=== PATIENT | female | born 1990 | race Caucasian/White ===

== ENCOUNTER 2016-08-21 20:08 | Emergency (ER) | payer BC ==
[~2016-08-21] VITALS: Ht 162.6 cm; Wt 102.0 kg
[~2016-08-21 20:08] MED LIST: ALBU8.5H3 INH; AMOX1TAB67 PO; AZIT250T94 PO; CLIN-73 PO; HYDR-3498 PO; HYDR-902 PO; IBUP800T25 PO; LOPE1LIQ69 PO; NPH10OT BOTH EARS; ONDA4TAB35 PO; PARO40TA48 PO
[2016-08-21 20:10] VITALS: Ht 162.6 cm; Wt 102.0 kg
[2016-08-21] MEDS ORDERED: CEFTRIAXONE 1 GM INJ IM ONE (21:00)
[2016-08-21] MEDS ORDERED: DOXY100T20 PO (21:23)
--- NOTE | 2016-08-21 22:09 | ERD ---
ER Documentation Chief Complaint Date/Time DATE: 08/21/16 TIME: 22:05 Chief Complaint abscess left temporal area HPI This patient is a 26-year-old female with no significant medical history presenting to the emergency department for abscess to her left temporal area which began yesterday. The patient attempted to pop the "pimple". This made her symptoms worse. The patient denies fevers, discharge from the area, or other symptoms at this time. The patient has taken no medication for relief of symptoms. ROS All systems reviewed and are negative except as per history of present illness. Medications Home Meds Active Scripts Doxycycline Hyclate* (Doxycycline Hyclate*) 100 Mg Tablet.dr, 100 MG PO BID for 10 Days, #20 TAB Prov:PADMINI DERAS PA-C 08/21/16 Ibuprofen* (Motrin*) 800 Mg Tab, 800 MG PO Q6H Y for PAIN AND OR ELEVATED TEMP, #30 TAB Prov:CHINA MONTOYA DO 02/05/16 Albuterol Sulfate* (Proair HFA*) 8.5 Gm Hfa.aer.ad, 2 PUFF INH Q4, #1 INHALER Prov:CHINA MONTOYA DO 02/05/16 Azithromycin* (Zithromax*) 250 Mg Tablet, 250 MG PO .NilsonPACK DIRECTED, #6 TAB TAKE 500 MG (2 TABS) THE FIRST DAY THEN 250 MG (1 TAB) DAYS 2-5 Prov:CHINA MONTOYA DO 02/05/16 Hydrocodone/Acetaminophen (Beulah 10-325 Tablet) 1 Each Tablet, 1 TAB PO Q6H Y for PAIN, #20 TAB Prov:CHINA MONTOYA DO 02/05/16 Ondansetron Hcl* (Zofran* ODT) 4 mg -ODT Tab.disper, 4 MG PO Q6 Y for NAUSEA AND /OR VOMITING, #30 TAB Prov:LINDSEY ABDALLA PA-C 11/16/15 Hydrocodone Bit-Acetaminophen* (Beulah*) 5-325 Mg Tab, 1 TAB PO Q6 Y for PAIN, # 20 TAB Prov:PEPITO CARDENAS PA-C 03/22/15 Clindamycin Hcl* (Clindamycin Hcl*) 300 Mg Capsule, 300 MG PO TID for 7 Days, CAP Prov:CARDENASPEPITO LINDA 03/22/15 Neomycin/Polymyxin/Hydrocort* (Cortisporin* Otic) 10 Ml Susp, 4 DROP BOTH EARS QID for 7 Days, EA Prov:JACEK MENDOZA 01/03/15 Amoxicillin-Clavulanate K* (Augmentin*) 500 Mg Tab, 500 MG PO BID for 10 Days, TAB Prov:JACEK MENDOZA Chriss 01/03/15 Reported Medications Loperamide Hcl* (Imodium*) 0.2 Mg/Ml Liq, 1 MG PO Y for DIARRHEA, ML MAX 16 mg/day 10/23/14 Paroxetine Hcl* (Paxil*) 40 Mg Tablet, 40 MG PO DAILY, TAB 10/23/14 Allergies Allergies: Coded Allergies: No Known Allergy (Unverified , 10/23/14) PMhx/Soc History of Surgery: Yes (CYSTECTOMY FROM AXILLA) Anesthesia Reaction: No Hx Neurological Disorder: No Hx Respiratory Disorders: No Hx Cardiac Disorders: No Hx Psychiatric Problems: No Hx Miscellaneous Medical Probl: Yes (DEGENERATIVE DISC DISEASE, Bartholin cyst) Hx Alcohol Use: No Hx Substance Use: No Hx Tobacco Use: No Smoking Status: Never smoker FmHx Noncontributory for chief complaint Physical Exam Vitals Vital Signs Date Time Temp Pulse Resp B/P Pulse Ox O2 Delivery O2 Flow Rate FiO2 08/21/16 20:10 98.2 101 20 128/64 99 Physical Exam Const: The patient is resting comfortably in no acute distress. Head: Atraumatic Eyes: Normal Conjunctiva. EOMs are intact bilaterally without pain on movement. ENT: Normal External Ears, Nose and Mouth. Neck: Full range of motion..~ No meningismus. Resp: Clear to auscultation bilaterally Cardio: Regular rate and rhythm, no murmurs Abd: Soft, non tender, non distended. Normal bowel sounds Skin: There is a 1 cm x 1 cm indurated area over the left temporal region with associated erythema and induration. There is no significant warmth or disseminated cellulitis present. Back: No midline or flank tenderness Ext: No cyanosis, or edema Neur: Awake and alert Psych: Normal Mood and Affect Results 24 hrs Current Medications Medications (Trade) Dose Ordered Sig/Livier Route PRN Reason Start Time Stop Time Status Last Admin Dose Admin Ceftriaxone Sodium (Rocephin) 1 gm ONCE ONCE IM 08/21/16 21:00 08/21/16 21:01 DC 08/21/16 21:28 Procedures/MDM 26-year-old female presents to the emergency department secondary to complaints of abscess to the left temporal region which began yesterday. On physical examination the patient's vitals are within normal limits. Examination of the skin in this area reveals an indurated abscess that is 1 cm x 1 cm with associated erythema. I have low suspicion for deep tissue infection, periorbital cellulitis, septicemia, or other emergent conditions. The patient was given 1 g IM Rocephin in the department. I do not believe that incision and drainage is indicated at this time due to induration of the area. The patient is stable for outpatient management with a prescription for doxycycline. The patient agrees with the discharge plan and diagnosis. I consulted Dr. China Montoya, attending ED physician regarding this patient's case and he recommended close follow-up within 48 hours. He agreed with the ED course otherwise. The patient's questions and concerns were addressed. Strict ER return precautions were discussed. The patient is to follow-up with her primary care physician within the next 1-2 days. Departure Diagnosis: Primary Impression: Abscess Additional Impression: Cellulitis Condition: Fair Patient Instructions: Abscess, Antiobiotic Treatment Only, Cellulitis, Facial Additional Instructions: Please return in 48 hours for repeat evaluation. Follow up with your PCP within the next 1-3 days for a more thorough evaluation and a possible referral to a specialist. Return the the emergency department immediately if symptoms worsen or change. If you have any questions regarding medications, ask your pharmacist or us before you leave. If any adverse reactions, occur while taking your medications, discontinue the treatment and return to the emergency department immediately. If any new or worsening symptoms, uncontrolled fevers, or other unexplained symptoms occur, return to the emergency department immediately. Take your medications as directed, and complete the entire course of treatment. PADMINI DERAS PA-C Aug 21, 2016 22:08
== END 2016-08-21 21:45 | disposition home or self-care (01) ==
LOC: FTE 20:08
DX: L02.01 Cutaneous abscess of face (principal); L03.211 Cellulitis of face
CPT/HCPCS: 96372; 99284; J0696

== ENCOUNTER 2016-08-22 13:16 | Inpatient (IN) | payer BC ==
[~2016-08-22] VITALS: Ht 149.9 cm; Wt 101.0 kg
[~2016-08-22 13:16] MED LIST changes: +DOXY100T20 PO
[2016-08-22] MEDS ORDERED: DIPHENHYDRAMINE 50 MG INJ IV ONE (14:30)
[2016-08-22] MEDS ORDERED: CLINDAMYCIN 600 MG/D5W (PMX) 50 ML IVPB SCH (14:30)
[2016-08-22 14:57] LABS: ADD SCAN DIFF NO
[2016-08-22 15:16] LABS: BASOPHILS % 0.2 % (0.0-2.0); EOSINOPHILS # 0.1 10^3/ul (0.0-0.5); EOSINOPHILS % 1.1 % (0.0-7.0); HEMATOCRIT 36.1 % (37.0-47.0); HEMOGLOBIN 12.3 g/dl (12.0-16.0); LYMPHOCYTES # 1.9 10^3/ul (0.8-2.9); MEAN CORPUSCULAR HEMOGLOBIN 29.1 pg (29.0-33.0); MEAN CORPUSCULAR HGB CONC 34.1 g/dl (32.0-37.0); MEAN CORPUSCULAR VOLUME 85.3 fl (82.0-101.0); MONOCYTE # 0.8 10^3/ul (0.3-0.9); NEUTROPHIL # 8.8 10^3/ul (1.6-7.5); NEUTROPHILS % 75.4 % (39.0-77.0); PLATELET COUNT 318 10^3/UL (140-415); RED BLOOD COUNT 4.23 10^6/ul (4.20-5.40); RED CELL DISTRIBUTION WIDTH 13.2 % (11.5-14.5); WHITE BLOOD COUNT 11.6 10^3/ul (4.8-10.8)
[2016-08-22 15:27] LABS: ALBUMIN 4.2 g/dl (3.3-4.9); POTASSIUM 4.1 mmol/L (3.5-5.1)
[2016-08-22 15:29] LABS: CREATININE 0.65 mg/dl (0.44-1.00)
[2016-08-22 15:30] LABS: ALBUMIN/GLOBULIN RATIO 1.07; BILIRUBIN,INDIRECT 0.1 mg/dl (0-1.1); BILIRUBIN,TOTAL 0.1 mg/dl (0.2-1.3); CALCIUM 9.5 mg/dl (8.4-10.2); TOTAL PROTEIN 8.1 g/dl (6.1-8.1)
[2016-08-22] MEDS ORDERED: IOHEXOL 300MG/ML 150 ML BTL ONE (15:59)
[2016-08-22] MEDS ORDERED: SOD CHLORIDE 0.9% 100 ML ONE (15:59)
--- NOTE | 2016-08-22 16:23 | RADRPT ---
PROCEDURE: CT orbits with contrast CLINICAL INDICATION: Left-sided orbital cellulitis. TECHNIQUE: A CT of the orbits was performed utilizing axial sections following the uneventful intr avenous injection of 100 cc Omnipaque-300. Coronal and sagittal images were also reformatted. The e xam CTDIvol = 52.99 mGy and DLP = 616.05 mGy-cm. COMPARISON: CT sinuses 02/20/2015 FINDINGS: Globes: Normal in morphology and symmetric bilaterally with no intraocular density alteration or pr optosis. Intraconal structures: There is preservation of the retrobulbar fat without collection to suggest i ntraorbital abscess or phlegmon. The optic nerve and sheath complexes are normal in size and symmet jonathan. Extraocular muscles: Normal in size and symmetric bilaterally, the tendinous insertions are normal in thickness. Extraconal structures: The lacrimal glands are unremarkable. There is diffuse abnormal left-sided p reseptal, premaxillary and lateral periorbital inflammatory phlegmon consistent with the known histo ry of cellulitis but there is no extension of inflammatory change posterior to the left orbital sept um. No subcutaneous abscess is demonstrated. The right-sided structures are normal. Orbital apex: No abnormalities identified on either side. Optic chiasm: No abnormalities demonstrated. The area of the sella turcica and cavernous sinuses i s normal. Bony orbits: There is no evidence for fracture, erosion or periosteal reaction. Visualized paranasal sinuses: Moderate amount of maxillary sinus mucosal thickening is present john aterally. Other findings: Asymmetric enlargement of the left parotid gland is partially visualized with promi nent left-sided parotid and carotid space lymph nodes likely reactive lymphadenitis RPTAT:HJJR IMPRESSION: 1. Severe left-sided preseptal, lateral periorbital and premaxillary cellulitis with inflammatory p hlegmon but no evidence of abscess or extension posterior to the left orbital septum into the retrob ulbar fat. 2. Asymmetric enlargement of the left parotid gland with prominent intraparotid lymph nodes on the left consistent with lymphadenitis. 3. No osseous abnormality is present to suggest subperiosteal abscess or periostitis. Chris Amaral, Physician Date Time Electronically viewed and signed by Chris Amaral Physician on 08/22/2016 16:23 JR/
[2016-08-22] MEDS ORDERED: VANCOMYCIN 1.25 GM in SOD CHLORIDE 0.9% 250 ML IVPB ONE (17:00)
[2016-08-22] MEDS ORDERED: KETOROLAC 30 MG INJ IV STA (17:31)
[2016-08-22] MEDS ORDERED: SOD CHLORIDE 0.9% 1,000 ML IV SCH (17:55)
[2016-08-22] MEDS ORDERED: ONDANSETRON 4 MG INJ IV PRN (18:00)
[2016-08-22] MEDS ORDERED: ACETAMINOPHEN 325 MG TAB PO PRN ×2 (18:00→18:30)
--- NOTE | 2016-08-22 18:01 | ERA ---
ER Documentation Chief Complaint Date/Time DATE: 08/22/16 TIME: 17:57 Chief Complaint lt eye swelling since yesterday HPI This is a 26-year-old female who presents to the emergency room for evaluation of left base and eye swelling for 24 hours duration. The patient states that she did originally pop a pimple on the left temporal region and noticed spread of the redness. This patient was diagnosed with facial cellulitis 24 hours ago. She was given Rocephin and doxycycline. This patient has been taking medications as prescribed however her swelling has gone significantly worse according to the patient. This patient states her eye is now swollen and she cannot open her left eye. ROS All systems reviewed and are negative except as per history of present illness. Medications Home Meds Active Scripts Doxycycline Hyclate* (Doxycycline Hyclate*) 100 Mg Tablet., 100 MG PO BID for 10 Days, #20 TAB Prov:PADMINI DERAS PA-C 08/21/16 Ibuprofen* (Motrin*) 800 Mg Tab, 800 MG PO Q6H Y for PAIN AND OR ELEVATED TEMP, #30 TAB Prov:JAMAL MONTOYA DO 02/05/16 Albuterol Sulfate* (Proair HFA*) 8.5 Gm Hfa.aer.ad, 2 PUFF INH Q4, #1 INHALER Prov:JAMAL MONTOYA DO 02/05/16 Azithromycin* (Zithromax*) 250 Mg Tablet, 250 MG PO .ZPACK DIRECTED, #6 TAB TAKE 500 MG (2 TABS) THE FIRST DAY THEN 250 MG (1 TAB) DAYS 2-5 Prov:JAMAL MONTOYA DO 02/05/16 Hydrocodone/Acetaminophen ([place] 10-325 Tablet) 1 Each Tablet, 1 TAB PO Q6H Y for PAIN, #20 TAB Prov:JAMAL MONTOYA DO 02/05/16 Ondansetron Hcl* (Zofran* ODT) 4 mg -ODT Tab.disper, 4 MG PO Q6 Y for NAUSEA AND /OR VOMITING, #30 TAB Prov:LINDSEY ABDALLA PA-C 11/16/15 Hydrocodone Bit-Acetaminophen* ([place]*) 5-325 Mg Tab, 1 TAB PO Q6 Y for PAIN, # 20 TAB Prov:PEPITO CARDENAS-C 03/22/15 Clindamycin Hcl* (Clindamycin Hcl*) 300 Mg Capsule, 300 MG PO TID for 7 Days, CAP Prov:PEPITO CARDENAS LINDA 03/22/15 Neomycin/Polymyxin/Hydrocort* (Cortisporin* Otic) 10 Ml Susp, 4 DROP BOTH EARS QID for 7 Days, EA Prov:JACEK MENDOZA Chriss 01/03/15 Amoxicillin-Clavulanate K* (Augmentin*) 500 Mg Tab, 500 MG PO BID for 10 Days, TAB Prov:JACEK MENDOZA Chriss 01/03/15 Reported Medications Loperamide Hcl* (Imodium*) 0.2 Mg/Ml Liq, 1 MG PO Y for DIARRHEA, ML MAX 16 mg/day 10/23/14 Paroxetine Hcl* (Paxil*) 40 Mg Tablet, 40 MG PO DAILY, TAB 10/23/14 Allergies Allergies: Coded Allergies: No Known Allergy (Unverified , 10/23/14) PMhx/Soc History of Surgery: Yes (CYSTECTOMY FROM AXILLA) Anesthesia Reaction: No Hx Neurological Disorder: No Hx Respiratory Disorders: No Hx Cardiac Disorders: No Hx Psychiatric Problems: No Hx Miscellaneous Medical Probl: Yes (DEGENERATIVE DISC DISEASE, Bartholin cyst) Hx Alcohol Use: No Hx Substance Use: No Hx Tobacco Use: No Physical Exam Vitals Vital Signs Date Time Temp Pulse Resp B/P Pulse Ox O2 Delivery O2 Flow Rate FiO2 08/22/16 17:54 90 16 113/67 97 Room Air 08/22/16 13:20 98.8 108 18 115/79 98 Physical Exam INITIAL VITAL SIGNS: Reviewed by me GENERAL: The patient is well developed and appropriate for usual state of health in no apparent distress HEENT: Left orbital swelling and erythema surrounding the orbit. No painful range of motion. Erythema extending to the mid she and left temporal zygomatic arch., No abscess pupils equal, round, and reactive to light. EOMI. There is no scleral icterus. NECK: C-spine is soft and supple, there is no meningismus. There is no cervical lymphadenopathy. LUNGS: Clear to auscultation bilaterally. There are no rales, wheezes or rhonchi. HEART: Regular rate and rhythm, no murmurs, clicks, rubs or gallops. ABDOMEN: Soft, non-tender, non-distended. There are bowel sounds in all four quadrants. No rebound or guarding. EXTREMITIES: There is no peripheral cyanosis or edema. No focal swelling or erythema. NEUROLOGICAL: The patient moves all four extremities with 5/5 strength. Cranial nerves II - XII are intact. Normal gait. Alert and oriented SKIN: There is no apparent rash or petechiae. HEME/LYMPHATIC: There is no evidence of excessive bruising or lymphedema. PSYCHIATRIC: The patient does not appear anxious or depressed. Result Diagram: 08/22/16 1433 08/22/16 1433 Results 24 hrs Laboratory Tests Test 08/22/16 14:33 White Blood Count 11.610^3/ul Red Blood Count 4.2310^6/ul Hemoglobin 12.3g/dl Hematocrit 36.1% Mean Corpuscular Volume 85.3fl Mean Corpuscular Hemoglobin 29.1pg Mean Corpuscular Hemoglobin Concent 34.1g/dl Red Cell Distribution Width 13.2% Platelet Count 63040^3/UL Mean Platelet Volume 10.0fl Neutrophils % 75.4% Lymphocytes % 16.0% Monocytes % 7.0% Eosinophils % 1.1% Basophils % 0.2% Nucleated Red Blood Cells % 0.0/100WBC Neutrophils # 8.810^3/ul Lymphocytes # 1.910^3/ul Monocytes # 0.810^3/ul Eosinophils # 0.110^3/ul Basophils # 0.010^3/ul Nucleated Red Blood Cells # 0.010^3/ul Sodium Level 140mmol/L Potassium Level 4.1mmol/L Chloride Level 104mmol/L Carbon Dioxide Level 23mmol/L Anion Gap 17 Blood Urea Nitrogen 11mg/dl Creatinine 0.65mg/dl Glucose Level 101mg/dl Calcium Level 9.5mg/dl Total Bilirubin 0.1mg/dl Direct Bilirubin 0.00mg/dl Indirect Bilirubin 0.1mg/dl Aspartate Amino Transf (AST/SGOT) 21IU/L Alanine Aminotransferase (ALT/SGPT) 21IU/L Alkaline Phosphatase 52IU/L Total Protein 8.1g/dl Albumin 4.2g/dl Globulin 3.90g/dl Albumin/Globulin Ratio 1.07 Current Medications Medications (Trade) Dose Ordered Sig/Livier Route PRN Reason Start Time Stop Time Status Last Admin Dose Admin Clindamycin HCl/ Dextrose (Cleocin 600 Mg/ D5W (Pmx)) 50 ml @ 50 mls/hr ONCE IVPB 08/22/16 14:30 08/22/16 15:29 DC 08/22/16 15:28 Diphenhydramine HCl (Benadryl) 25 mg ONCE ONCE IV 08/22/16 14:30 08/22/16 14:31 DC 08/22/16 14:57 IV Flush 10 ml 10 ml STK-MED ONCE .ROUTE 08/22/16 15:59 08/22/16 16:00 DC 08/22/16 16:11 Sodium Chloride (NS) 100 ml @ ud STK-MED ONCE .ROUTE 08/22/16 15:59 08/22/16 16:00 DC 08/22/16 16:11 Iohexol 150 ml 150 ml STK-MED ONCE .ROUTE 08/22/16 15:59 08/22/16 16:00 DC 08/22/16 16:12 Vancomycin HCl/ Sodium Chloride (Vancocin/NS) 250 ml @ 83.333 mls/ hr ONCE ONCE IVPB 08/22/16 17:00 08/22/16 19:59 08/22/16 17:14 Ketorolac Tromethamine (Toradol) 30 mg ONCE STAT IV 08/22/16 17:31 08/22/16 17:32 DC Procedures/MDM CT orbit: 1. Severe left-sided preseptal, lateral periorbital and premaxillary cellulitis with inflammatory phlegmon but no evidence of abscess or extension posterior to the left orbital septum into the retrobulbar fat. 2. Asymmetric enlargement of the left parotid gland with prominent intraparotid lymph nodes on the left consistent with lymphadenitis. 3. No osseous abnormality is present to suggest subperiosteal abscess or periostitis. This 26-year-old female presents to the emergency room for evaluation of left sided facial swelling. When I evaluated this patient I did note a significant amount of cellulitis over the left face and swelling of the left eyelid. The patient had no painful range of motion. CT does reveal preseptal cellulitis. This patient has been on doxycycline and is failed outpatient treatment. She was given clindamycin and vancomycin in the emergency room. No fever or leukocytosis, however given her failed outpatient treatment and severity of her symptoms the patient will be placed in for admission at this time on her [facility] floor under the care of Dr. anoop Orozco Diagnosis: Primary Impression: Preseptal cellulitis of left eye Additional Impression: Failure of outpatient treatment Condition: Stable JEISON CHILDS DO Aug 22, 2016 18:01
[2016-08-22] MEDS ORDERED: DOCUSATE SODIUM 100 MG CAP PO PRN (18:30)
[2016-08-22] MEDS ORDERED: NACL 0.9% 3 ML SYG IV SCH (18:30)
[2016-08-22] MEDS ORDERED: ONDANSETRON 4 MG TAB PO PRN (18:30)
[2016-08-22 20:17] VITALS: TEMP 98.6
[2016-08-22] MEDS: ZOLPIDEM 5 MG TAB PO PRN (21:46)
[2016-08-22 22:17] VITALS: Ht 149.9 cm; Wt 101.0 kg
[2016-08-22 22:23] VITALS: BP 125/62; PULSE 100; RESP 20
[2016-08-22] MEDS: PIPER-TAZO 3.375 GM IV (PMX) 100 ML IVPB SCH (23:34)
[2016-08-23 05:18] LABS: ADD SCAN DIFF NO
[2016-08-23 05:33] LABS: BASOPHILS % 0.2 % (0.0-2.0); EOSINOPHILS # 0.2 10^3/ul (0.0-0.5); EOSINOPHILS % 1.9 % (0.0-7.0); HEMATOCRIT 33.3 % (37.0-47.0); HEMOGLOBIN 11.1 g/dl (12.0-16.0); LYMPHOCYTES # 2.1 10^3/ul (0.8-2.9); LYMPHOCYTES % 23.2 % (15.0-51.0); MEAN CORPUSCULAR HEMOGLOBIN 29.3 pg (29.0-33.0); MEAN CORPUSCULAR HGB CONC 33.3 g/dl (32.0-37.0); MEAN CORPUSCULAR VOLUME 87.9 fl (82.0-101.0); MEAN PLATELET VOLUME 10.2 fl (7.4-10.4); MONOCYTE # 0.6 10^3/ul (0.3-0.9); MONOCYTES % 6.4 % (0.0-11.0); NEUTROPHIL # 6.1 10^3/ul (1.6-7.5); PLATELET COUNT 277 10^3/UL (140-415); RED BLOOD COUNT 3.79 10^6/ul (4.20-5.40); RED CELL DISTRIBUTION WIDTH 13.3 % (11.5-14.5)
[2016-08-23] MEDS: PIPER-TAZO 3.375 GM IV (PMX) 100 ML IVPB SCH ×3 (05:33→18:27)
[2016-08-23] MEDS: HYDROCODONE/APAP (5/325) TAB PO PRN ×2 (05:33→19:57)
[2016-08-23 05:52] LABS: ALBUMIN 3.7 g/dl (3.3-4.9); POTASSIUM 4.1 mmol/L (3.5-5.1)
[2016-08-23 05:54] LABS: CREATININE 0.72 mg/dl (0.44-1.00)
[2016-08-23 05:55] LABS: ALBUMIN/GLOBULIN RATIO 1.02; BILIRUBIN,INDIRECT 0.1 mg/dl (0-1.1); BILIRUBIN,TOTAL 0.1 mg/dl (0.2-1.3); CALCIUM 9.3 mg/dl (8.4-10.2); TOTAL PROTEIN 7.3 g/dl (6.1-8.1)
[2016-08-23 07:29] VITALS: BP 106/53; RESP 18
[2016-08-23] MEDS: IBUPROFEN 600 MG TAB PO PRN (09:24)
[2016-08-23] MEDS ORDERED: KETOROLAC 30 MG INJ IV STA (10:33)
[2016-08-23] MEDS ORDERED: PAROXETINE 20 MG TAB PO SCH (11:00)
[2016-08-23] MEDS ORDERED: VANCOMYCIN IV PER PHARMACY XX SCH (19:00)
[2016-08-23] MEDS ORDERED: KETOROLAC 30 MG INJ IV PRN (19:00)
[2016-08-23 19:14] VITALS: BP 114/56; RESP 16
[2016-08-23] MEDS: VANCOMYCIN 1.25 GM in SOD CHLORIDE 0.9% 250 ML IVPB SCH (22:19)
[2016-08-23] MEDS ORDERED: DIPHENOXYLATE/ATROPINE TAB PO PRN (22:30)
--- NOTE | 2016-08-23 22:30 | HP ---
DATE OF ADMISSION: 08/22/2016 CHIEF COMPLAINT: Left eye swelling and redness. HISTORY OF PRESENT ILLNESS: This 26-year-old female was seen in the emergency room on the day prior to admission with a large infected sebaceous cyst on the left lateral periorbital and lef t temporal area. The patient was given a shot of Rocephin and discharged to home on doxycycline. O jose a the course of the following day, patient's left periorbital and upper and lower eyelids swelled up to severe proportion where she could not open her left eye. The patient was brought back to the emergency room and is admitted for cellulitis and left facial abscess. PAST MEDICAL HISTORY: 1. Lumbar spine degenerative disk disease. 2. Bartholin cyst. 3. Axilla cystectomy. 4. Asthma. 5. Anxiety, depression. MEDICATIONS: 1. Paroxetine 20 mg p.o. every day. 2. Doxycycline 100 mg p.o. b.i.d. 3. Haskins p.r.n. back pain. 4. Albuterol HFA p.r.n. shortness of breath or wheezing. ALLERGIES: NKDA. FAMILY HISTORY: Noncontributory. PHYSICAL EXAMINATION: VITAL SIGNS: Temperature 98.5, blood pressure 106/53, pulse of 74, respiration rate 18, O2 saturati on 98% on room air. HEENT: Left upper and lower eyelid marked edema. The patient is able to open eye a 1/4 inch. The left lateral periorbital area has a 1.5 cm indurated subcutaneous cyst with minimal erythema on top and no current discharge and no fluctuance. NECK: No lymphadenopathy, no goiter. LUNGS: Clear to auscultation. CARDIAC: Regular rate and rhythm. Normal S1, S2. ABDOMEN: Active bowel sounds, soft, nondistended, nontender. EXTREMITIES: No clubbing, cyanosis, or edema. LABORATORY DATA: WBC was 11.6 on admission and this morning is at 9.0. Hemoglobin is 11.1 and kami tocrit 33.3, platelet count is 277,000. Sodium is 141, potassium 4.1, BUN 16, creatinine 0.72. Sheila er enzymes are within normal limits except for elevated globulin of 3.6 and total bilirubin of 0.1. IMPRESSION: 1. Left periorbital abscess with severe eyelid swelling. Will consult ophthalmology for possible i ncision and drainage of this periorbital abscess. Continue Zosyn and vancomycin for now. 2. Other problems. Continue paroxetine for anxiety, depression. Dictated By: ROSALVA LANDERS MD DP/NTS Conf#: [id number] DID#: [id number] CC: YANETH JEAN-BAPTISTE MD;*EndCC*
[2016-08-23] MEDS: ZOLPIDEM 5 MG TAB PO PRN (23:11)
[2016-08-24] MEDS: PIPER-TAZO 3.375 GM IV (PMX) 100 ML IVPB SCH ×4 (01:36→18:09)
[2016-08-24 05:37] LABS: ADD SCAN DIFF NO
[2016-08-24 05:42] LABS: BASOPHILS % 0.2 % (0.0-2.0); EOSINOPHILS # 0.2 10^3/ul (0.0-0.5); EOSINOPHILS % 2.6 % (0.0-7.0); HEMATOCRIT 33.7 % (37.0-47.0); HEMOGLOBIN 10.8 g/dl (12.0-16.0); LYMPHOCYTES # 2.4 10^3/ul (0.8-2.9); LYMPHOCYTES % 28.7 % (15.0-51.0); MEAN CORPUSCULAR HEMOGLOBIN 28.3 pg (29.0-33.0); MEAN CORPUSCULAR VOLUME 88.5 fl (82.0-101.0); MEAN PLATELET VOLUME 10.7 fl (7.4-10.4); MONOCYTE # 0.5 10^3/ul (0.3-0.9); MONOCYTES % 5.5 % (0.0-11.0); NEUTROPHIL # 5.3 10^3/ul (1.6-7.5); NEUTROPHILS % 62.6 % (39.0-77.0); PLATELET COUNT 234 10^3/UL (140-415); RED BLOOD COUNT 3.81 10^6/ul (4.20-5.40); RED CELL DISTRIBUTION WIDTH 13.4 % (11.5-14.5); WHITE BLOOD COUNT 8.5 10^3/ul (4.8-10.8)
[2016-08-24 06:04] LABS: CALCIUM 8.7 mg/dl (8.4-10.2); CREATININE 0.71 mg/dl (0.44-1.00); POTASSIUM 4.1 mmol/L (3.5-5.1)
[2016-08-24] MEDS: HYDROCODONE/APAP (5/325) TAB PO PRN ×2 (08:02→14:01)
[2016-08-24] MEDS: PAROXETINE 20 MG TAB PO SCH (08:02)
[2016-08-24 08:24] VITALS: RESP 18
[2016-08-24] MEDS: VANCOMYCIN 1.25 GM in SOD CHLORIDE 0.9% 250 ML IVPB SCH ×2 (10:11→21:41)
--- NOTE | 2016-08-24 17:23 | CONS ---
DATE OF ADMISSION: 08/22/2016 DATE OF CONSULTATION: 08/24/2016 Yarelis Landers MD Dear Yarelis, I saw Sabiha Coy on 08/24/2016 in room 405A at 4:00 p.m. She relates that on last Tuesday mo rning that she had a pimple-like lesion of her left mandaeism and this was not particularly bothersome. She went and saw her dentist, Dr. Christin Marte, for routine dentistry; however, it had become increas ingly inflamed. She did go to the emergency room that night and was placed on antibiotics on the . This did not improve and she was then admitted to the emergency room of [facility]. She was given a course of vancomycin before she came up to the floor. She since has been st arted on Zosyn and with ongoing vancomycin, the swelling of her left eye has been improved in the . She has no history of diabetes, she does not have a history of immune compromise. She stat es that she has not been febrile. In fact, she states that she has otherwise been feeling well. She does have a history, however, of irritable bowel syndrome. Also, she states in general that she i s feeling well, although she has been sleeping a fair amount during his hospital stay. Her mother i s also an employee of [employer] and works in the ICU. Her medications are reviewed. PAST MEDICAL HISTORY: Significant for musculoskeletal issues, obesity. PHYSICAL EXAMINATION: GENERAL: She has no remarkable lesions of her scalp. She has a violaceous hair dye. HEENT: Her conjunctivae are not injected in either eye. She has left periorbital erythema. There is only slightly increased warmth. SKIN: Her left mandaeism has a 2 x 2 cm firm dome-shaped nodule with surrounding erythema. Her right upper chest has a 5 x 3 mm irregular pigmented dark brown macule. She has some acanthosis nigricans of her neck and folds of her skin, while her right lower leg has a warty pink 5 mm papule. ASSESSMENT: 1. Clinically, this is most compatible with an infected furuncle of the left mandaeism with concomitan t left periorbital swelling. Given her overall state of health and improvement on antibiotics and clinically appearance, it seems much less likely that this could represent a deep fungal infection s uch as mucor. 2. Atypical appearing nevus of the right upper chest wall. 3. A verruca of the right lower leg. 4. Acanthosis nigricans due to weight. TREATMENT PLAN: The lesion was anesthetized with lidocaine 1% with epinephrine following cleansing with alcohol and I and D was performed. There was copious cloudy discharge which was submitted for a bacterial C and S. The lesion was then injected with dilute cortisone. I have advised having mup irocin twice daily and I agree with antibiotic coverage. If she does not improve, then would consid er a biopsy and submitted tissue culture. I did strongly advise that the irregular lesion pigmented of her right upper chest be biopsied, although this can be performed as an outpatient and she consi grant at least cryotherapy as an outpatient for the warty lesion of her right leg. Thank you for allowing me to participate in the care of this pleasant patient. Sincerely yours Dictated By: TITO WOMACK MD GN/NTS Conf#: [id number] DID#: [id number] CC: YARELIS LANDERS MD;*EndCC*
--- NOTE | 2016-08-24 20:03 | PN ---
DATE: 08/24/2016 SUBJECTIVE: The patient is awake and alert, reports marked decrease in left temporal area and periorbital area edema and pain after the slot operations manager drained her sebaceous cyst. OBJECTIVE: VITAL SIGNS: Temperature 98.0, blood pressure 114/56, pulse of 83, respiration rate 16, O2 saturation 96% on room air. HEENT: Left temporal area still has some swelling and induration but much less than yesterday. The left periorbital edema and blepharitis also markedly decreased. However, there is still some erythema of the upper and lower eyelids on the left side. LUNGS: Clear to auscultation. CARDIAC: Regular rate and rhythm. Normal S1, S2. ABDOMEN: Active bowel sounds. Soft, nondistended, nontender. EXTREMITIES: No clubbing, cyanosis or edema. LABORATORY DATA: WBC 8.5, hemoglobin 10.8, hematocrit 33.7, platelet count 234, 000. Her sodium is 139, potassium 4.1, BUN 11, creatinine 0.71, glucose 91. ASSESSMENT AND PLAN: Left facial cellulitis and left eye blepharitis, improving with the addition of vancomycin on top of Zosyn as well as the incision and drainage of the left temporalis sebaceous cyst. Will continue course of IV antibiotics for today, switch to oral Keflex or doxycycline tomorrow, and if patient continues to do well with diminishing redness of the left face, we will discharge her to home on oral medications, keeping in mind the patient did fail Rocephin injection and oral doxycycline as an outpatient. Dictated By: ROSALVA LANDERS MD DP/NTS Conf#: [id number] DID#: [id number] MTDD
[2016-08-24 21:08] VITALS: BP 115/65; RESP 20
[2016-08-24] MEDS: MUPIROCIN 2% 22 GM OINT TOP SCH (21:39)
[2016-08-24] MEDS: ZOLPIDEM 5 MG TAB PO PRN (23:53)
[2016-08-25] MEDS: PIPER-TAZO 3.375 GM IV (PMX) 100 ML IVPB SCH ×4 (00:48→17:55)
[2016-08-25 08:00] VITALS: BP 119/66; RESP 20
[2016-08-25] MEDS: PAROXETINE 20 MG TAB PO SCH (09:27)
[2016-08-25] MEDS: MUPIROCIN 2% 22 GM OINT TOP SCH (09:27)
[2016-08-25] MEDS: VANCOMYCIN 1.25 GM in SOD CHLORIDE 0.9% 250 ML IVPB SCH (10:03)
--- NOTE | 2016-08-25 13:02 | CONS ---
DATE OF ADMISSION: 08/22/2016 DATE OF CONSULTATION: 08/25/2016 TYPE OF CONSULTATION: Ophthalmology REFERRING PHYSICIAN: Yarelis Lugo MD HISTORY OF PRESENT ILLNESS: Thank you for asking me to see this 26-year-old female in consultation. She has had a history of developing an infected pimple-like lesion of her left nondenominational, which incre ased in size and discomfort and led to left periorbital swelling. The patient was hospitalized for intravenous antibiotic therapy and was seen yesterday by Dr. Jesus Alberto Leslie, who diagnosed an infected furuncle of the left nondenominational with concomitant left periorbital swelling. An incision and drainage wa s performed on the lesion. The patient notes that she has had e improved level of comfort and that the swelling around the left eye has diminished. The patient denies any decrease of vision in that eye or any discharge other than tearing at the present time from the left eye. The patient has been treated with intravenous vancomycin therapy since admission. PHYSICAL EXAMINATION: The visual acuity at near is 20/25 in the right eye and 20/40 in the left eye . External examination reveals 2+ edema of the left upper eyelid. There is no associated erythema or discharge noted. Examination of the anterior surface of both eyes appears quiet. No evidence of conjunctival injection, discharge or corneal opacification is noted. The pupil of each eye is 4 mm , round and reactive to light. The extraocular movement appears full. The confrontation visual fie ld test is within normal limits in both eyes. Examination of the media appears clear. Examination of the retina reveals normal-appearing optic disk, macula and blood vessels in both eyes. DIAGNOSES: 1. History of infected furuncle left nondenominational. 2. Secondary blepharitis left upper eyelid. COMMENT: This patient appears to be improving following incision and drainage of the infected cyst and is currently noting diminished discomfort around her left eye. In the absence of any discharge or inflammation of the anterior surface of the eye, the patient does not require any topical ocular antibiotic therapy. I do recommend that the patient use warm compresses for more rapid resolution o f the inflammation of the left upper eyelid. Dictated By: MAXX MANZANO/SEJAL Conf#: [id number] DID#: [id number]
[2016-08-25] MEDS: IBUPROFEN 600 MG TAB PO PRN (13:10)
[2016-08-25] MEDS ORDERED: VANCOMYCIN 1 GM in NS 250 ML IVPB SCH (18:00)
[2016-08-25] MEDS ORDERED: MUPI22OI2 TOP (18:57)
--- NOTE | 2016-08-26 05:06 | DS ---
DATE OF ADMISSION: 08/22/2016 DATE OF DISCHARGE: 08/25/2016 DISCHARGE DIAGNOSES: 1. Left facial cellulitis. 2. Infected sebaceous cyst, left temporalis area. 3. Blepharitis, upper and lower lid. HOSPITAL COURSE: This 26-year-old female was admitted with progressively swollen left tem poralis area and severe periorbital edema as well as redness and pain. The patient was placed on Zo syn initially with only very mild improvement. Vancomycin was then added, and dermatology as well a s ophthalmology consult was obtained. The behavioral modification assistant did an incision and drainage of the left te mporalis abscess from the infected sebaceous cyst, and the cleaning porter recommended hot or cold p ack for the left eye periorbital edema. After these were done, the patient had remarkable relief of symptoms over the ensuing 24 hours. The preliminary culture of the wound is growing out Staph familia us. Blood cultures were negative, and the patient is discharged to home on doxycycline 100 mg p.o. b.i.d. which she has at home and Bactroban ointment for the left temporal wound. DISPOSITION: The patient is discharged to home in good condition. FOLLOWUP: The patient will follow up with Dr. Yarelis Lugo and Dr. Jesus Alberto Leslie within 1 to 2 weeks. Dictated By: YARELIS DOMINGUEZ/SEJAL Conf#: [id number] DID#: [id number]
== END 2016-08-25 20:00 | disposition home or self-care (01) | DRG 122 ==
LOC: FTE 13:16 → MS1 17:56
PROVIDERS: ADMIT Internal Medicine; ATTEND Internal Medicine
PROC: 0H91XZZ Drainage of Face Skin, External Approach (ICD-10-PCS; principal; 2016-08-24)
DX: H05.012 Cellulitis of left orbit (principal); F32.9 Major depressive disorder, single episode, unspecified; F41.9 Anxiety disorder, unspecified; D22.5 Melanocytic nevi of trunk; B07.8 Other viral warts; L83 Acanthosis nigricans; H01.004 Unspecified blepharitis left upper eyelid; L72.3 Sebaceous cyst
CPT/HCPCS: 36415; 70480; 80048; 80053; 80202; 83605; 85025; 87040; 87070; 87075; 96365; 96366; 96375; J1200; J1885; J2543; J3370; J7030; J7050; Q9967

== ENCOUNTER 2016-08-28 02:42 | Emergency (ER) | payer BC ==
[~2016-08-28] VITALS: Ht 149.9 cm; Wt 103.0 kg
[~2016-08-28 02:42] MED LIST changes: -AMOX1TAB67 PO; -AZIT250T94 PO; -HYDR-3498 PO; -HYDR-902 PO; -LOPE1LIQ69 PO; +MUPI22OI2 TOP; -NPH10OT BOTH EARS; -ONDA4TAB35 PO; -PARO40TA48 PO
[2016-08-28 02:44] VITALS: Ht 149.9 cm; Wt 103.0 kg
[2016-08-28] MEDS ORDERED: SOD CHLORIDE 0.9% 1,000 ML IV ONE (04:00)
[2016-08-28] MEDS ORDERED: FAMOTIDINE 20 MG INJ IV ONE (04:00)
[2016-08-28] MEDS ORDERED: METHYLPREDNISOLONE 125 MG INJ IV ONE (04:00)
[2016-08-28] MEDS ORDERED: DIPHENHYDRAMINE 50 MG INJ IV ONE (04:00)
[2016-08-28] MEDS ORDERED: hydrOXYzine HCL 25 MG TAB PO ONE (05:00)
[2016-08-28] MEDS ORDERED: HYDR-842 PO (05:24)
[2016-08-28] MEDS ORDERED: PRED20TA PO (05:25)
--- NOTE | 2016-08-28 05:56 | ERD ---
ER Documentation Chief Complaint Date/Time DATE: 08/28/16 TIME: 05:42 Chief Complaint Allergic reaction to antibiotic Doxycycline since yesterday. HIVES HPI This patient is a 26-year-old female with no significant past medical history presenting to the emergency department for itching with rash all over the body which began yesterday. The patient believes she has a allergy to doxycycline. The patient was seen by her patternmaker sample this morning and was given a "cortisone" shot. This has provided little to no relief of her symptoms. Additionally the patient has taken oral Benadryl. She currently reports moderate symptoms. The rash is extremely pruritic according to her. The patient last took doxycycline 2 days ago. The patternmaker sample wanted her to stop the doxycycline. She denies shortness of breath, wheezing, nausea, vomiting, diarrhea, or other symptoms at this time. ROS All systems reviewed and are negative except as per history of present illness. Medications Home Meds Active Scripts Prednisone* (Prednisone*) 20 Mg Tab, 40 MG PO DAILY for 4 Days, #8 TAB Prov:PADMINI DERAS PA-C 08/28/16 Hydroxyzine Hcl* (Atarax*) 25 Mg Tab, 25 MG PO Q6H Y for ITCHING, #20 TAB Prov:PADMINI DERAS PA-C 08/28/16 Mupirocin* (Bactroban*) 2% -22 Gram Oint...g., 1 APPLIC TOP TID for 10 Days, # 30 GM Prov:ROSALVA LANDERS MD 08/25/16 Doxycycline Hyclate* (Doxycycline Hyclate*) 100 Mg Tablet.dr, 100 MG PO BID for 10 Days, #20 TAB Prov:PADMINI DERAS PA-C 08/21/16 Ibuprofen* (Motrin*) 800 Mg Tab, 800 MG PO Q6H Y for PAIN AND OR ELEVATED TEMP, #30 TAB Prov:JAMAL MONTOYA DO 02/05/16 Albuterol Sulfate* (Proair HFA*) 8.5 Gm Hfa.aer.ad, 2 PUFF INH Q4, #1 INHALER Prov:JAMAL MONTOYA DO 02/05/16 Clindamycin Hcl* (Clindamycin Hcl*) 300 Mg Capsule, 300 MG PO TID for 7 Days, CAP Prov:PEPITO CARDENAS PA-C 03/22/15 Discontinued Reported Medications Loperamide Hcl* (Imodium*) 0.2 Mg/Ml Liq, 1 MG PO Y for DIARRHEA, ML MAX 16 mg/day 10/23/14 Paroxetine Hcl* (Paxil*) 40 Mg Tablet, 40 MG PO DAILY, TAB 10/23/14 Discontinued Scripts Azithromycin* (Zithromax*) 250 Mg Tablet, 250 MG PO .JOSE LUIS DIRECTED, #6 TAB TAKE 500 MG (2 TABS) THE FIRST DAY THEN 250 MG (1 TAB) DAYS 2-5 Prov:JAMAL MONTOYA DO 02/05/16 Hydrocodone/Acetaminophen ([place] 10-325 Tablet) 1 Each Tablet, 1 TAB PO Q6H Y for PAIN, #20 TAB Prov:JAMAL MONTOYA DO 02/05/16 Ondansetron Hcl* (Zofran* ODT) 4 mg -ODT Tab.disper, 4 MG PO Q6 Y for NAUSEA AND /OR VOMITING, #30 TAB Prov:LINDSEY ABDALLA PA-C 11/16/15 Hydrocodone Bit-Acetaminophen* ([place]*) 5-325 Mg Tab, 1 TAB PO Q6 Y for PAIN, # 20 TAB Prov:PEPITO CARDENAS PA-C 03/22/15 Neomycin/Polymyxin/Hydrocort* (Cortisporin* Otic) 10 Ml Susp, 4 DROP BOTH EARS QID for 7 Days, EA Prov:JACEK MENDOZA 01/03/15 Amoxicillin-Clavulanate K* (Augmentin*) 500 Mg Tab, 500 MG PO BID for 10 Days, TAB Prov:JACEK MENDOZA 01/03/15 Allergies Allergies: Coded Allergies: No Known Allergy (Unverified , 08/23/16) PMhx/Soc History of Surgery: Yes (CYST REMOVAL FROM ARMPIT AND VAGINAL AREA) Anesthesia Reaction: No Hx Neurological Disorder: No Hx Respiratory Disorders: No Hx Cardiac Disorders: No Hx Psychiatric Problems: Yes (DEPRESSION, ANXIETY ) Hx Miscellaneous Medical Probl: Yes (periorbital cellulitis) Hx Substance Use: No Hx Tobacco Use: No Smoking Status: Never smoker FmHx Noncontributory for chief complaint Physical Exam Vitals Vital Signs Date Time Temp Pulse Resp B/P Pulse Ox O2 Delivery O2 Flow Rate FiO2 08/28/16 02:44 100.1 128 20 122/66 95 Physical Exam Const: The patient is resting comfortably in no acute distress. Head: Atraumatic Eyes: Normal Conjunctiva ENT: Normal External Ears, Nose and Mouth. The airway is clear. Neck: Full range of motion..~ No meningismus. Resp: Clear to auscultation bilaterally. No wheezing. Cardio: Regular rate and rhythm, no murmurs Abd: Soft, non tender, non distended. Normal bowel sounds Skin: There are multiple macular papular rashes with confluent areas containing wheals to the bilateral upper and lower extremities and the trunk. There are no signs of cellulitis. Back: No midline or flank tenderness Ext: No cyanosis, or edema Neur: Awake and alert Psych: Normal Mood and Affect Results 24 hrs Current Medications Medications (Trade) Dose Ordered Sig/Livier Route PRN Reason Start Time Stop Time Status Last Admin Dose Admin Sodium Chloride (NS) 1,000 ml @ 1,000 mls/hr Q1H ONCE IV 08/28/16 04:00 08/28/16 04:59 DC 08/28/16 04:00 Diphenhydramine HCl (Benadryl) 50 mg ONCE ONCE IV 08/28/16 04:00 08/28/16 04:01 DC 08/28/16 03:59 Methylprednisolone Sodium Succinate (Solu-Medrol) 125 mg ONCE ONCE IV 08/28/16 04:00 08/28/16 04:01 DC 08/28/16 03:59 Famotidine (Pepcid Iv) 20 mg ONCE ONCE IV 08/28/16 04:00 08/28/16 04:01 DC 08/28/16 03:59 Hydroxyzine HCl (Atarax) 50 mg ONCE ONCE PO 08/28/16 05:00 08/28/16 05:01 DC 08/28/16 05:13 Procedures/MDM 26-year-old female presents secondary to complaints of pruritic rash secondary to possible drug eruption. On physical examination the patient is slightly tachycardic at 128. Her temperature is slightly elevated at 100.1F. Pulse ox is 95% on room air. I believe her abnormal vitals stem from her current rash and allergic reaction. Vitals were checked again prior to discharge and she had stabilized. The patient was given IV fluids, IV Benadryl IV Pepcid, p.o. Atarax in the department. She was feeling improved on reevaluation. The patient is stable for discharge. I have low suspicion for Beckham-Hank's, cellulitis, septicemia, or other emergent conditions. All questions and concerns addressed. Strict ER return precautions discussed and the patient demonstrates good understanding. The patient is to have close follow-up with the primary care physician in the next 1-3 days. Shared medical decision- making with Dr. Retana, who agreed with the ED course. Departure Diagnosis: Primary Impression: Rash and nonspecific skin eruption Additional Impression: Drug allergy Condition: Fair Patient Instructions: Allergic Reaction, Drug (Child) Additional Instructions: Follow up with your PCP within the next 1-3 days for a more thorough evaluation and a possible referral to a specialist. Return the the emergency department immediately if symptoms worsen or change. If you have any questions regarding medications, ask your pharmacist or us before you leave. If any adverse reactions, occur while taking your medications, discontinue the treatment and return to the emergency department immediately. If any new or worsening symptoms, uncontrolled fevers, or other unexplained symptoms occur, return to the emergency department immediately. Take your medications as directed, and complete the entire course of treatment. PADMINI DERAS PA-C August 28, 2016 05:55
[2016-08-28 06:04] VITALS: BP 120/59; PULSE 99; RESP 16; TEMP 99.4
[2016-08-28] MEDS ORDERED: EPIN0.3P4 INJ (06:17)
--- NOTE | 2016-08-28 06:20 | EN ---
Date/Time of Note Date/Time of Note DATE: 08/28/16 TIME: 06:19 ER Progress Note Patient was asking about an EpiPen prior to discharge. I did speak with the provider Eber Laws after he left and provider indicated that yes there was some discussion about giving the patient an EpiPen. I did prescribe the patient an EpiPen. NAVDEEP CAMILO PA-C August 28, 2016 06:20
== END 2016-08-28 06:21 | disposition home or self-care (01) ==
LOC: FTE 02:42
DX: R21 Rash and other nonspecific skin eruption (principal); T36.4X5A Adverse effect of tetracyclines, initial encounter
CPT/HCPCS: 96374; 96375; 99284; J1200; J2930; J7030

== ENCOUNTER 2018-03-20 17:14 | Emergency (ER) | END 2018-03-20 21:54 | disposition home or self-care (01) ==

== ENCOUNTER 2018-09-01 15:38 | Emergency (ER) | payer OTHER ==
[~2018-09-01] VITALS: Ht 149.9 cm; Wt 100.0 kg
[~2018-09-01 15:38] MED LIST changes: -ALBU8.5H3 INH; +ALBU8.5H8 INH; -CLIN-73 PO; +CLIN300C10 PO; +EPIN0.3P4 INJ; +FAMO-96 PO; +HYDR-842 PO; -IBUP800T25 PO; +IBUP800T48 PO; +PRED20TA PO
[2018-09-01 15:43] VITALS: BP 133/59; PULSE 72; RESP 19; Ht 149.9 cm; Wt 100.0 kg
[2018-09-01] MEDS ORDERED: NAPR-985 PO (16:41)
--- NOTE | 2018-09-01 21:46 | ERD ---
ER Documentation Chief Complaint Chief Complaint left arm pain/numbness HPI 28-year-old female with past medical history of depression, anxiety, arthritis presenting to the emergency department complaining of numbness and tingling sensation to the left hand, worse in the left middle finger. She has history of similar symptoms in the past. 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 Symptoms overall moderate in severity. She took no medication for relief of symptoms. She denies any chest pain, shortness of breath, suicidal ideation, homicidal ideation, or other symptoms at this time. ROS All systems reviewed and are negative except as per history of present illness. Medications Home Meds Active Scripts Naproxen* (Naprosyn*) 500 Mg Tablet, 500 MG PO BID PRN for PAIN AND/OR INFLAMMATION, #30 TAB Prov:PADMINI DERAS PA-C 09/01/18 Famotidine* (Pepcid*) 20 Mg Tablet, 20 MG PO BID for 4 Days, #30 TAB Prov:ANURADHA FUENTES PA-C 03/20/18 Epinephrine (Epipen 2-Cuong) 0.3 Mg/0.3 Ml Pen.injctr, 1 EA INJ ONCE PRN for ALLERGIC REACTION, #1 EA Prov:NAVDEEP CAMILO PA-C 08/28/16 Prednisone* (Prednisone*) 20 Mg Tab, 40 MG PO DAILY for 4 Days, #8 TAB Prov:PADMINI DERAS PA-C 08/28/16 Hydroxyzine Hcl* (Atarax*) 25 Mg Tab, 25 MG PO Q6H PRN for ITCHING, #20 TAB Prov:PADMINI DERAS PA-C 08/28/16 Mupirocin* (Bactroban*) 2% -22 Gram Oint...g., 1 APPLIC TOP TID for 10 Days, #30 GM Prov:ROSALVA LANDERS MD 08/25/16 Doxycycline Hyclate* (Doxycycline Hyclate*) 100 Mg Tablet.dr, 100 MG PO BID for 10 Days, #20 TAB Prov:PADMINI DERAS PA-C 08/21/16 Ibuprofen* (Motrin*) 800 Mg Tab, 800 MG PO Q6H PRN for PAIN AND OR ELEVATED TEMP, #30 TAB Prov:JAMAL MONTOYA DO 02/05/16 Albuterol Sulfate* (Proair HFA*) 8.5 Gm Hfa.aer.ad, 2 PUFF INH Q4, #1 INHALER Prov:JAMAL MONTOYA DO 02/05/16 Clindamycin Hcl* (Clindamycin Hcl*) 300 Mg Capsule, 300 MG PO TID for 7 Days, CAP Prov:PEPITO CARDENAS PA-C 03/22/15 Allergies Allergies: Coded Allergies: doxycycline (Verified Allergy, Unknown, 03/20/18) PMhx/Soc History of Surgery: Yes (CYST REMOVAL FROM ARMPIT AND VAGINAL AREA) Anesthesia Reaction: No Hx Neurological Disorder: No Hx Respiratory Disorders: No Hx Cardiac Disorders: No Hx Psychiatric Problems: Yes (DEPRESSION, ANXIETY ) Hx Miscellaneous Medical Probl: Yes (periorbital cellulitis) Hx Alcohol Use: No Hx Substance Use: No Hx Tobacco Use: No FmHx Family History: No diabetes Physical Exam Vitals Vital Signs Date Temp Pulse Resp B/P (MAP) Pulse Ox O2 O2 Flow FiO2 Time Delivery Rate 09/01/18 99.5 72 19 133/59 96 15:43 (83) Physical Exam Const: No acute distress Head: Atraumatic Eyes: Normal Conjunctiva ENT: Normal External Ears, Nose and Mouth. Neck: Full range of motion. No meningismus. Resp: Clear to auscultation bilaterally Cardio: Regular rate and rhythm, no murmurs Skin: No petechiae or rashes Back: No midline or flank tenderness Ext: No cyanosis, or edema. Strength and sensation intact to the bilateral upper extremities. Neur: Awake and alert Psych: Normal Mood and Affect Procedures/MDM 28-year-old female presented to the emergency department with signs and symptoms most consistent with carpal tunnel. Other differential diagnosis includes cerv ical radiculopathy, neuropathy, muscle strain, and others. Patient's musculoskeletal symptoms have stabilized while they have been evaluated in the department and are appropriate for outpatient work up. No evidence of cauda equina, cord compression, infiltrative, or infectious etiology. No evidence of life-threatening pathology at time of discharge. Pt/family in agreement with discharge plan/diagnosis. Pt/family advised to return immediately with any new or worsening symptoms. Follow-up with primary c are physician within the next 1-2 days. Disclaimer: Inadvertent spelling and grammatical errors are likely due to EHR/dictation software use and do not reflect on the overall quality of patient care. Also, please note that the electronic time recorded on this note does not necessarily reflect the actual time of the patient encounter. Departure Diagnosis: Primary Impression: Numbness and tingling of left upper extremity Condition: Fair Patient Instructions: What Is Carpal Tunnel Syndrome (CTS)?, Radiculopathy, Cervical Additional Instructions: Call your primary care doctor TOMORROW for an appointment during the next 1-2 days.See the doctor sooner or return here if your condition worsens before your appointment time. PADMINI DERAS PA-C September 01, 2018 21:46
== END 2018-09-01 17:30 | disposition home or self-care (01) ==
LOC: FTE 15:38
DX: R20.0 Anesthesia of skin (principal); R20.2 Paresthesia of skin
CPT/HCPCS: 99282

== ENCOUNTER → 2018-11-11 | Emergency (ER) | payer BC, OTHER ==
[~2018-11-11] VITALS: Ht 149.9 cm; Wt 100.6 kg
[~2018-11-11] MED LIST changes: +FLUC150T PO; +LIDOCAINE 2% (MDV) 20 ML INJ INJ ONE; +NAPR-985 PO
[2018-11-11 19:00] VITALS: Ht 149.9 cm; Wt 100.6 kg
--- NOTE | 2018-11-11 22:58 | ERD ---
ER Documentation Chief Complaint Chief Complaint Pt reports bartholin cyst on L side HPI This is a 28-year-old female patient who presents to the emergency room with concern of potentially having a Bartholin cyst on her left labia as she stated she had pain, itching, pressure sensation. No fevers, no dysuria, last Bartholin's in same location 2014. No chronic medical conditions ROS All systems reviewed and are negative except as per history of present illness. Medications Home Meds Active Scripts Fluconazole* (Diflucan*) 150 Mg Tablet, 150 MG PO ONCE, #1 TAB Prov:GLENDY BOGGS NP 11/11/18 Naproxen* (Naprosyn*) 500 Mg Tablet, 500 MG PO BID PRN for PAIN AND/OR INFLAMMATION, #30 TAB Prov:PADMINI DERAS PA-C 09/01/18 Famotidine* (Pepcid*) 20 Mg Tablet, 20 MG PO BID for 4 Days, #30 TAB Prov:ANURADHA FUENTES PA-C 03/20/18 Epinephrine (Epipen 2-Cuong) 0.3 Mg/0.3 Ml Pen.injctr, 1 EA INJ ONCE PRN for ALLERGIC REACTION, #1 EA Prov:NAVDEEP CAMILO PA-C 08/28/16 Prednisone* (Prednisone*) 20 Mg Tab, 40 MG PO DAILY for 4 Days, #8 TAB Prov:PADMINI DERAS PA-C 08/28/16 Hydroxyzine Hcl* (Atarax*) 25 Mg Tab, 25 MG PO Q6H PRN for ITCHING, #20 TAB Prov:PADMINI DERAS PA-C 08/28/16 Mupirocin* (Bactroban*) 2% -22 Gram Oint...g., 1 APPLIC TOP TID for 10 Days, #30 GM Prov:ROSALVA LANDERS MD 08/25/16 Doxycycline Hyclate* (Doxycycline Hyclate*) 100 Mg Tablet.dr, 100 MG PO BID for 10 Days, #20 TAB Prov:PADMINI DERAS PA-C 08/21/16 Ibuprofen* (Motrin*) 800 Mg Tab, 800 MG PO Q6H PRN for PAIN AND OR ELEVATED TEMP, #30 TAB Prov:JAMAL MONTOYA DO 02/05/16 Albuterol Sulfate* (Proair HFA*) 8.5 Gm Hfa.aer.ad, 2 PUFF INH Q4, #1 INHALER Prov:JAMAL MONTOYA DO 02/05/16 Clindamycin Hcl* (Clindamycin Hcl*) 300 Mg Capsule, 300 MG PO TID for 7 Days, CAP Prov:PEPITO CARDENAS PA-C 03/22/15 Allergies Allergies: Coded Allergies: doxycycline (Verified Allergy, Unknown, 11/11/18) PMhx/Soc History of Surgery: Yes (cyst removal) Anesthesia Reaction: No Hx Neurological Disorder: No Hx Respiratory Disorders: No Hx Cardiac Disorders: No Hx Psychiatric Problems: No Hx Miscellaneous Medical Probl: Yes (cyst) Hx Alcohol Use: No Hx Substance Use: No Hx Tobacco Use: No Smoking Status: Never smoker FmHx Family History: No diabetes, No coronary disease, No other Physical Exam Vitals Vital Signs Date Temp Pulse Resp B/P (MAP) Pulse Ox O2 O2 Flow FiO2 Time Delivery Rate 11/11/18 99.6 96 16 135/74 98 19:00 (94) Physical Exam Const: No acute distress Head: Atraumatic Eyes: Normal Conjunctiva ENT: Normal External Ears, Nose and Mouth. Neck: Full range of motion. No meningismus. Resp: Clear to auscultation bilaterally Cardio: Regular rate and rhythm, no murmurs Abd: Soft, non tender, non distended. Normal bowel sounds Skin: No petechiae or rashes Back: No midline or flank tenderness Neur: Awake and alert Psych: Normal Mood and Affect Perineum Exam: Mother present at time of exam Abdomen: Nontender External Genitalia: Normal Skin Labia Minora: bright red, small punctate diffuse satellite lesions, thick creamy discharge. No masses palpated, no lesions, no swelling. Results 24 hrs Laboratory Tests Test 11/11/18 22:29 11/11/18 22:31 POC Beta HCG, Qualitative NEGATIVE Bedside Urine pH (LAB) 5.5 Bedside Urine Protein (LAB) Negative Bedside Urine Glucose (UA) Negative Bedside Urine Ketones (LAB) Negative Bedside Urine Blood Trace-lysed Bedside Urine Nitrite (LAB) Negative Bedside Urine Leukocyte Esterase (L Negative Current Medications Medications Dose Sig/Livier Start Time Status Last (Trade) Ordered Route PRN Stop Time Admin Dose Reason Admin Lidocaine 20 ml ONCE ONCE 11/11/18 DC (Xylocaine INJ 20:00 2% (Mdv) 20 11/11/18 20:01 ml) Procedures/MDM PROCEDURES/MDM PROCEDURES: No incision and drainage as no abscess observed LAB INTERPRETATION: Urine negative for urinary tract infection and MDM: This patient appears to be experiencing vulvovaginal candidiasis which may have contributed to her perennial pain and concern for Bartholin cyst. Patient was not sure if she actually had a cyst as she is obese and unable to reach her labia with her hands. No cyst palpated or observed during examination. Patient was instructed to follow-up with her idea man for repeat evaluation in 7 to 10 days. Patient was treated with Diflucan and instructed on performing sitz bath's. A serious, rapidly progressive infectious process is unlikely based upon the patients presentation and appearance of the infection. Antibiotic treatment has been initiated here and response to treatment will be based on reassessment at close follow-up. The patient has been instructed on signs and symptoms of acute progression of infection and to return immediately if any of these occur. DISPOSITION and PLAN: RX: Diflucan The patient has been discharge home to follow-up with community physician. Departure Diagnosis: Primary Impression: Candidiasis Condition: Stable Patient Instructions: Fluconazole Oral tablet Additional Instructions: Thank you very much for allowing us to participate in your care. Your health and safety is our top priority at [facility]. Call your primary care doctor TOMORROW for an appointment during the next 2-4 days and bring all the information and medications prescribed. Have prescriptions filled and follow precisely the directions on the label. If the symptoms get worse and your provider is unavailable, return to the Emergency Department immediately. TAKE DOSE OF FLUCONAZOLE INCREASE HYDRATION USE SITZ BATH 2-3 TIMES PER DAY RETURN TO EMERGENCY ROOM IMMEDIATELY WITH FEVER, WORSENING OF PAIN, RECURRENCE OF ABSCESS GLENDY BOGGS NP Nov 11, 2018 22:58
== END | disposition home or self-care (01) ==
LOC: FTE 18:43
DX: B37.3 Candidiasis of vulva and vagina (principal)
CPT/HCPCS: 81003; 81025; Z7502; Z7610; 99283